=== PATIENT | male | born 1960 ===

== ENCOUNTER 2016-12-21 18:56 | Emergency (ER) | payer OTHER ==
[~2016-12-21] VITALS: Ht 170.2 cm; Wt 94.0 kg
[2016-12-21 19:05] VITALS: Ht 170.2 cm; Wt 94.0 kg
[2016-12-21] MEDS ORDERED: SOD CHLORIDE 0.9% 1,000 ML IV STA (20:11)
[2016-12-21] MEDS ORDERED: KETOROLAC 15 MG INJ IV STA (20:11)
[2016-12-21] MEDS ORDERED: METHYLPREDNISOLONE 125 MG INJ IV ONE (20:30)
[2016-12-21] MEDS ORDERED: ACYCLOVIR 500 MG in DEXTROSE 5% 100 ML IVPB ONE (20:30)
[2016-12-21] MEDS ORDERED: ACYC400T2 PO (20:34)
[2016-12-21] MEDS ORDERED: IBUP-1542 PO (20:34)
[2016-12-21] MEDS ORDERED: TETR15DR26 OPHTHALMIC (20:34)
[2016-12-21] MEDS ORDERED: [UNRECOGNIZED DRUG - CODE] PO (20:34)
[2016-12-21] MEDS ORDERED: LISI20TA11 PO (21:09)
--- NOTE | 2016-12-21 21:31 | RADRPT ---
PROCEDURE: Noncontrast CT Head. CLINICAL INDICATION: Hamilton's palsy TECHNIQUE: Noncontrast CT of the head was obtained. The administered radiation dose was CTDI vol = 43.38 mGy, DLP = 720.23 mGy-cm. One or more of the following dose reduction techniques were used: Au tomated exposure control, Adjustment of the mA and/or kV according to patient size, or Use of iterat khai reconstruction technique. COMPARISON: There are no similar studies submitted for comparison. FINDINGS: There is no acute intracranial hemorrhage, midline shift, or mass effect. The cerebral ramos-white ma tter differentiation appears preserved. No extra-axial collection is seen. There is mild diffuse cer ebral volume loss with compensatory mild diffuse cerebral sulcal and ventricular enlargement. Mild p atchy low attenuation in the periventricular and deep cerebral white matter is nonspecific, but sugg estive of mild chronic microangiopathic change. The basal cisterns are preserved. There is mild diff use cerebellar volume loss. There is intracranial calcific atherosclerotic disease involving the int ernal carotid artery bilaterally. The visualized paranasal sinuses and mastoid air cells are essenti ally clear. No fluid is seen within the middle ear cavities. No acute fracture or suspicious osseous lesion is identified. IMPRESSION: 1. No evidence of an acute intracranial process. 2. 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 3. Intracranial calcific atherosclerotic disease. RPTAT: [facility] Physician Sona Date Time Electronically viewed and signed by Physician Sona on 12/21/2016 21:30 SONU/
[2016-12-21 22:06] VITALS: BP 136/97; PULSE 66; RESP 20; TEMP 98.3
--- NOTE | 2016-12-21 22:11 | RADRPT ---
PROCEDURE: XR Chest. CLINICAL INDICATION: Shortness of breath TECHNIQUE: Single portable view of the chest was obtained COMPARISON: No priors for comparison FINDINGS: The trachea is midline. The cardiac silhouette is and pulmonary vascularity are within normal limits . The lungs are clear. The costophrenic angles are sharp. IMPRESSION: 1. Cardiomegaly. No evidence of acute cardiopulmonary disease. RPTAT: [facility] Physician Petros Date Time Electronically viewed and signed by Tammy Cervantes Physician on 12/21/2016 22:11 JL/
--- NOTE | 2016-12-21 23:39 | ERD ---
ER Documentation Chief Complaint Chief Complaint left facial droop x 3 days, bilateral hand strength equal 5/5, headache HPI 56-year-old man presents with left facial weakness 3 days, and clear discharge from the left eye. He denies previous similar episodes, no headache or blurry vision, no weakness in his arms or legs, no difficulty speaking or swallowing. Patient denies recent URI symptoms, no fevers or chills, no recent travel. ROS All systems reviewed and are negative except as per history of present illness. Medications Home Meds Active Scripts Tetrahydrozoline Hcl/Zn Sulf (Eye Irritation Relief Drops) 15 Ml Drops, 2 DROP OPHTHALMIC QID for 10 Days, #1 BOTTLE Prov:GEETA STANLEY MD 12/21/16 Ibuprofen* (Ibuprofen*) 600 Mg Tablet, 600 MG PO Q8 for PAIN AND/OR INFLAMMATION , #30 TAB Prov:GEETA STANLEY MD 12/21/16 Acyclovir* (Acyclovir*) 400 Mg Tablet, 400 MG PO QID for 10 Days, TAB Prov:GEETA STANLEY MD 12/21/16 Methylprednisolone* (Medrol*) 16 Mg Tablet, 16 MG PO DAILY, #1 PACKET Prov:GEETA STANLEY MD 12/21/16 Reported Medications Lisinopril* (Lisinopril*) 20 Mg Tablet, 20 MG PO DAILY, #30 TAB 12/21/16 Allergies Allergies: Coded Allergies: No Known Allergy (Unverified , 12/21/16) PMhx/Soc Hypertension Medical and Surgical Hx: pt denies Surgical Hx Hx Cardiac Disorders: Yes (HTN) Hx Psychiatric Problems: No Hx Miscellaneous Medical Probl: No Hx Alcohol Use: No Hx Substance Use: No Hx Tobacco Use: No Smoking Status: Never smoker FmHx Family History: No diabetes Physical Exam Vitals Per nurses records Physical Exam GENERAL: Well-developed, well-nourished, well-hydrated, in no apparent distress , looks nontoxic in appearance HEENT: Moist mucous membranes, pink conjunctiva, no cervical spine tenderness or step-off deformities, no goiter, no jaundice or icterus, extraocular movements intact without pain. No submandibular induration, and no pharyngeal erythema NEURO: Alert and oriented 3, left facial paresis including the forehead, Hamilton' s phenomenon when asked to close his eyes, no pronator drift, strength 5 out of 5 in upper and lower extremities bilaterally, pupils equal round reactive to light CARDIAC: Regular rate and rhythm, no murmurs rubs or gallops LUNGS: Clear bilaterally no wheezing crackles or stridor ABDOMEN: Soft nontender, no guarding, no rigidity, no rebound, no psoas sign no obturator sign. Normoactive bowel sounds SKIN: Warm and dry to touch, no abrasions, contusions, or hematomas, no lacerations, no ecchymosis, no target lesions, and without ulcers EXTREMITIES: No clubbing cyanosis or edema, calves are bilaterally symmetrical, no Homans sign, no popliteal cord sign. Distal pulses equal and bilateral PSYCH: Normal affect without agitation or irritability Results 24 hrs Laboratory Tests Test 12/21/16 19:22 White Blood Count 9.610^3/ul Red Blood Count 4.9510^6/ul Hemoglobin 15.0g/dl Hematocrit 44.5% Mean Corpuscular Volume 89.9fl Mean Corpuscular Hemoglobin 30.3pg Mean Corpuscular Hemoglobin Concent 33.7g/dl Red Cell Distribution Width 13.4% Platelet Count 48858^3/UL Mean Platelet Volume 10.2fl Neutrophils % 50.8% Lymphocytes % 35.9% Monocytes % 9.3% Eosinophils % 3.0% Basophils % 0.4% Nucleated Red Blood Cells % 0.0/100WBC Neutrophils # 4.910^3/ul Lymphocytes # 3.410^3/ul Monocytes # 0.910^3/ul Eosinophils # 0.310^3/ul Basophils # 0.010^3/ul Nucleated Red Blood Cells # 0.010^3/ul Sodium Level 141mmol/L Potassium Level 4.3mmol/L Chloride Level 102mmol/L Carbon Dioxide Level 25mmol/L Anion Gap 18 Blood Urea Nitrogen 19mg/dl Creatinine 1.03mg/dl Glucose Level 96mg/dl Calcium Level 9.4mg/dl Total Bilirubin 0.2mg/dl Direct Bilirubin 0.00mg/dl Indirect Bilirubin 0.2mg/dl Aspartate Amino Transf (AST/SGOT) 35IU/L Alanine Aminotransferase (ALT/SGPT) 54IU/L Alkaline Phosphatase 105IU/L Total Protein 7.6g/dl Albumin 4.8g/dl Globulin 2.80g/dl Albumin/Globulin Ratio 1.71 Lipase 139U/L Current Medications Medications (Trade) Dose Ordered Sig/Denita Route PRN Reason Start Time Stop Time Status Last Admin Dose Admin Acyclovir 500 mg/ Dextrose 100 ml @ 100 mls/hr ONCE ONCE IVPB 12/21/16 20:30 12/21/16 21:29 DC 12/21/16 21:17 Sodium Chloride (NS) 1,000 ml @ 1,000 mls/hr Q1H STAT IV 12/21/16 20:11 12/21/16 21:10 DC 12/21/16 20:38 Ketorolac Tromethamine (Toradol) 15 mg ONCE STAT IV 12/21/16 20:11 12/21/16 20:13 DC 12/21/16 20:38 Methylprednisolone Sodium Succinate (Solu-Medrol) 125 mg ONCE ONCE IV 12/21/16 20:30 12/21/16 20:31 DC 12/21/16 20:39 Procedures/MDM IV line was established patient was placed on radiographer cardiac catheterization rhythm strip revealed a sinus rhythm at about 80 bpm with upright P and T waves. Patient was afebrile I administered 1 L normal saline intravenously, acyclovir 500 mg IV 1, methylprednisolone 125 mg IV, and Toradol 15 mg IV 1. Chest X-ray 1V Interpreted by me: Soft Tissue: No acute abnormalities Bones: No acute abnormalities Mediastinum/Cardiac Silhouette/Lungs: No acute abnormalities CT scan of the brain was performed that was negative for acute bleed mass or shift. CBC and electrolytes are normal, liver function tests were normal. Differential diagnoses considered, included but not limited to acute coronary syndrome, pulmonary embolism, aortic dissection, abdominal aortic aneurysm, sepsis, stroke, meningitis, encephalitis, pneumonia, appendicitis, cholecystitis , bowel obstruction, pyelonephritis, nephrolithiasis, cystitis, as well as metabolic, hematologic, and electrolyte abnormalities. As well as abscess, cellulitis, fractures, and dislocations. Patient feels much better at this time , and vital signs are normal, symptoms have improved. I did give strict instructions to return to the ED if symptoms continue or worsen, patient will otherwise follow-up with primary care physician. Patient understood instructions and agreed to plan. Disclaimer: Inadvertent spelling and grammatical errors are likely due to EHR/ dictation software use and do not reflect on the overall quality of patient care. Also, please note that the electronic time recorded on this note does not necessarily reflect the actual time of the patient encounter. Departure Diagnosis: Primary Impression: Hamilton's palsy Condition: Good Patient Instructions: GEETA Aguila MD Dec 21, 2016 23:39 Departure Diagnosis: Primary Impression: Hamilton's palsy Condition: Good Patient Instructions: GEETA Aguila MD Dec 21, 2016 23:39
== END 2016-12-21 22:22 | disposition home or self-care (01) ==
LOC: E/R 18:56
DX: G51.0 Bell's palsy (principal); I10 Essential (primary) hypertension; R40.2142 Coma scale, eyes open, spontaneous, at arrival to emergency department; R40.2252 Coma scale, best verbal response, oriented, at arrival to emergency department; R40.2362 Coma scale, best motor response, obeys commands, at arrival to emergency department
CPT/HCPCS: 36415; 70450; 71010; 80053; 83690; 85025; 96374; 96375; J0133; J1885; J2930; J7030; Z7502; Z7610